=== PATIENT | female | born 1990 | race Caucasian/White ===

== ENCOUNTER 2020-04-28 00:55 | Emergency (ER) | payer MEDICAID, OTHER ==
[~2020-04-28] VITALS: Ht 160 cm; Wt 77.1 kg
--- NOTE | 2020-04-28 01:25 | ED Abdominal Pain ---
General Chief Complaint: Fever-Adult/Adol Stated Complaint: POSS FEVER,NAUSEA,ABD PAIN Source of Information: Patient Exam Limitations: No Limitations History of Present Illness Date Seen by Provider: Apr 28, 2020 Time Seen by Provider: 01:05 Initial Comments Patient presents ER by private conveyance with chief complaint last couple days some progressively worse fever, low pelvic pain nausea. She is not having any cough shortness of air. She claims her fever was a high of 105 1 hour ago but took some Tylenol and nursing reports temperature 36 Celsius when she arrives. Normal bowel movement yesterday. No known sick contacts. She went to [facility] yesterday and had 4 L of fluid given as well as blood in urine which she was told was okay. She says they did a negative Covid swab. Patient says she would like to have STD testing since she is having some pain in her right lower quadrant and some increasing discharge. She is denying any dysuria. She says her partner who she has been monogamous with has recently been moving out. She has had a history of chlamydia in the past and was adequately treated. Allergies and Home Medications Allergies Coded Allergies: Penicillins (Verified Allergy, Unknown, 04/28/20) amoxicillin (Verified Allergy, Unknown, 04/28/20) ibuprofen (Verified Allergy, Unknown, 04/28/20) latex (Verified Allergy, Unknown, 04/28/20) nitrofurantoin (Verified Allergy, Unknown, 04/28/20) Patient Home Medication List Home Medication List Reviewed: Yes Review of Systems Review of Systems Constitutional: chills, fever, malaise EENTM: No Blurred Vision Respiratory: Denies Cough, Denies Shortness of Air Past Jodsand-Ntouyd-Wbonjy Hx Patient Social History Recent Foreign Travel: No Contact w/Someone Who Travel: No Physical Exam Vital Signs Vital Signs - First Documented 04/28/20 01:18 Temp 36.2 Pulse 111 Resp 18 B/P (MAP) 122/94 (103) Pulse Ox 96 O2 Delivery Room Air Capillary Refill : Height/Weight/BMI Height: '" Weight: lbs. oz. kg; BMI Method: General Appearance: WD/WN, mild distress HEENT: PERRL/EOMI, pharynx normal Neck: full range of motion, supple, normal inspection Respiratory: lungs clear, normal breath sounds, no respiratory distress, no accessory muscle use Cardiovascular: normal peripheral pulses, regular rate, rhythm, no edema, tachycardia Peripheral Pulses: 2+ Radial Pulses (R), 2+ Radial Pulses (L) Gastrointestinal: normal bowel sounds, non tender, soft, no organomegaly, other (Negative for mesenteric signs) Genital/Rectal: other (Normal external genital exam without lesions. There is a thin white nonmalodorous discharge without cervical tenderness on examination.) Extremities: normal range of motion, non-tender, normal inspection Neurologic/Psychiatric: alert, normal mood/affect, oriented x 3 Skin: normal color, warm/dry Progress/Results/Core Measures Results/Orders Lab Results Laboratory Tests Test 04/28/20 01:25 Range/Units White Blood Count 4.7 4.3-11.0 10^3/uL Red Blood Count 4.31 3.80-5.11 10^6/uL Hemoglobin 11.9 11.5-16.0 g/dL Hematocrit 38 35-52 % Mean Corpuscular Volume 87 80-99 fL Mean Corpuscular Hemoglobin 28 25-34 pg Mean Corpuscular Hemoglobin Concent 32 32-36 g/dL Red Cell Distribution Width 15.0 H 10.0-14.5 % Platelet Count 157 130-400 10^3/uL Mean Platelet Volume 11.1 9.0-12.2 fL Immature Granulocyte % (Auto) 1 % Neutrophils (%) (Auto) 53 42-75 % Lymphocytes (%) (Auto) 38 12-44 % Monocytes (%) (Auto) 6 0-12 % Eosinophils (%) (Auto) 2 0-10 % Basophils (%) (Auto) 0 0-10 % Neutrophils # (Auto) 2.5 1.8-7.8 10^3/uL Lymphocytes # (Auto) 1.8 1.0-4.0 10^3/uL Monocytes # (Auto) 0.3 0.0-1.0 10^3/uL Eosinophils # (Auto) 0.1 0.0-0.3 10^3/uL Basophils # (Auto) 0.0 0.0-0.1 10^3/uL Immature Granulocyte # (Auto) 0.0 0.0-0.1 10^3/uL Urine Color YELLOW Urine Clarity CLEAR Urine pH 7.0 5-9 Urine Specific [place] <=1.005 1.016-1.022 Urine Protein NEGATIVE NEGATIVE Urine Glucose (UA) NEGATIVE NEGATIVE Urine Ketones NEGATIVE NEGATIVE Urine Nitrite NEGATIVE NEGATIVE Urine Bilirubin NEGATIVE NEGATIVE Urine Urobilinogen 1.0 < = 1.0 MG/DL Urine Leukocyte Esterase NEGATIVE NEGATIVE Urine RBC (Auto) NEGATIVE NEGATIVE Urine RBC NONE /HPF Urine WBC 0-2 /HPF Urine Squamous Epithelial Cells 2-5 /HPF Urine Crystals NONE /LPF Urine Bacteria TRACE /HPF Urine Casts NONE /LPF Urine Mucus NEGATIVE /LPF Urine Culture Indicated NO Sodium Level 137 135-145 MMOL/L Potassium Level 3.7 3.6-5.0 MMOL/L Chloride Level 103 98-107 MMOL/L Carbon Dioxide Level 22 21-32 MMOL/L Anion Gap 12 5-14 MMOL/L Blood Urea Nitrogen 6 L 7-18 MG/DL Creatinine 0.89 0.60-1.30 MG/DL Estimat Glomerular Filtration Rate > 60 BUN/Creatinine Ratio 7 Glucose Level 119 H 70-105 MG/DL Calcium Level 8.9 8.5-10.1 MG/DL Corrected Calcium 8.6 8.5-10.1 MG/DL Total Bilirubin 0.8 0.1-1.0 MG/DL Aspartate Amino Transf (AST/SGOT) 33 5-34 U/L Alanine Aminotransferase (ALT/SGPT) 42 0-55 U/L Alkaline Phosphatase 116 40-136 U/L C-Reactive Protein High Sensitivity 5.74 H 0.00-0.50 MG/DL Total Protein 7.4 6.4-8.2 GM/DL Albumin 4.4 3.2-4.5 GM/DL Lipase 21 8-78 U/L Micro Results Microbiology 04/28/20 Influenza Types A,B Antigen (DWAYNE) - Final, Complete My Orders Orders - ROSALIA POP Ua Culture If Indicated (04/28/20 01:17) Urine Bedside (04/28/20 01:17) Ed Iv/Invasive Line Start (04/28/20 01:17) Cbc With Automated Diff (04/28/20 01:17) Comprehensive Metabolic Panel (04/28/20 01:17) Hs C Reactive Protein (04/28/20 01:17) Lipase (04/28/20 01:17) Famotidine Injection (Pepcid Injection) (04/28/20 01:30) Ondansetron Injection (Zofran Injectio (04/28/20 01:30) Wet Prep (04/28/20 01:17) Neisseria Gonorrhea Swab (04/28/20 01:17) Chlamydia Trachomatis Swab (04/28/20 01:17) Syphilis Antibody Screen (04/28/20 01:17) Influenza A And B Antigens (04/28/20 01:29) Ceftriaxone For Iv Use (Rocephin For I (04/28/20 02:15) Azithromycin Tablet (Zithromax Tablet) (04/28/20 02:15) Medications Given in ED Current Medications Medications Dose Ordered Sig/Godwin Route Start Time Stop Time Status Last Admin Dose Admin Azithromycin 1,000 mg ONCE ONCE PO 04/28/20 02:15 04/28/20 02:16 DC 04/28/20 02:20 1,000 MG Ceftriaxone Sodium 1000 mg/ Sterile Water 10 ml @ 200 mls/hr ONCE ONCE IV 04/28/20 02:15 04/28/20 02:17 DC 04/28/20 02:20 200 MLS/HR Vital Signs/I&O 04/28/20 01:18 Temp 36.2 Pulse 111 Resp 18 B/P (MAP) 122/94 (103) Pulse Ox 96 O2 Delivery Room Air Progress Progress Note #1: Time: :26 Progress Note Plan to get a wet prep, syphilis, chlamydia and gonorrhea swabs. Plan to check some basic labs per her request. Repeat urinalysis. She has mild tachycardia 105-110 and otherwise unremarkable vital signs and a nonsurgical, nonacute abdomen. Zofran for nausea. She says she got 4 L of fluid last night at [facility] so we will hold off giving any IV fluids tonight. Progress Note #2: Time: 02:12 Progress Note Plan to give her Rocephin and azithromycin. Wet prep is sent to the lab. We discussed she could go to the health department for HIV testing but we will get testing for gonorrhea, chlamydia and syphilis. She is not having significant pain and has declined the Pepcid and Zofran stating she is no longer having nausea. Departure Impression Primary Impression: PID (pelvic inflammatory disease) Disposition: 01 HOME, SELF-CARE Condition: Stable Departure-Patient Inst. Decision time for Depature: 02:26 Referrals: NO,LOCAL PHYSICIAN (PCP/Family) Primary Care Physician Patient Instructions: LOCAL PHYSICIAN LIST, Pelvic Inflammatory Disease (DC) Add. Discharge Instructions: Your low pelvis pain and fever could be related to pelvic inflammatory disease. We have test sent out that will result out in the next 3 to 4 days. If they are positive they will call you with the results and make sure you have been appropriately treated. The antibiotics you received today should be adequate treatment for now. Tylenol as necessary for your symptoms. Drink plenty of fluids. If you would like further testing I would encourage you to follow-up with your primary care doctor, die repair or the [facility]. If you begin to have worsening intractable pain, intractable nausea or other worrisome symptoms then please return to the nearest ER. Doxycycline 1 capsule twice a day for the next week. All discharge instructions reviewed with patient and/or family. Voiced understanding. Scripts Doxycycline Hyclate (Doxycycline Hyclate) 100 Mg Tablet 100 MG PO BID for 7 Days, #14 TAB 0 Refills Prov: ROSALIA POP 04/28/20 ROSALIA POP Apr 28, 2020 01:25
[2020-04-28] MEDS ORDERED: ONDANSETRON 4 MG/2 ML (SDV) Z0FRAN IVP ONE (01:30)
[2020-04-28] MEDS ORDERED: FAMOTIDINE 20MG/2ML IV (PEPCID) IVP ONE (01:30)
[2020-04-28 01:32] LABS: BILIRUBIN,URINE NEGATIVE (NEGATIVE); CLARITY,URINE CLEAR; COLOR,URINE YELLOW; GLUCOSE, URINE (UA) NEGATIVE (NEGATIVE); KETONES,URINE NEGATIVE (NEGATIVE); LEUKOCYTE ESTERASE ,URINE NEGATIVE (NEGATIVE); NITRITE,URINE NEGATIVE (NEGATIVE); PROTEIN,URINE NEGATIVE (NEGATIVE)
[2020-04-28 01:39] LABS: BACTERIA,URINE TRACE /HPF; BASOPHILS % (AUTO) 0 % (0-10); EOSINOPHILS # (AUTO) 0.1 10^3/uL (0.0-0.3); EOSINOPHILS % (AUTO) 2 % (0-10); HEMATOCRIT 38 % (35-52); HEMOGLOBIN 11.9 g/dL (11.5-16.0); LYMPHOCYTES # (AUTO) 1.8 10^3/uL (1.0-4.0); LYMPHOCYTES % (AUTO) 38 % (12-44); MEAN CORPUSCULAR HEMOGLOBIN 28 pg (25-34); MEAN CORPUSCULAR HGB CONC 32 g/dL (32-36); MEAN CORPUSCULAR VOLUME 87 fL (80-99); MEAN PLATELET VOLUME 11.1 fL (9.0-12.2); MONOCYTES # (AUTO) 0.3 10^3/uL (0.0-1.0); MONOCYTES % (AUTO) 6 % (0-12); NEUTROPHILS # (AUTO) 2.5 10^3/uL (1.8-7.8); NEUTROPHILS % (AUTO) 53 % (42-75); PLATELET COUNT 157 10^3/uL (130-400); WBC,URINE 0-2 /HPF; WHITE BLOOD COUNT 4.7 10^3/uL (4.3-11.0)
[2020-04-28 01:42] LABS: ALBUMIN 4.4 GM/DL (3.2-4.5); CHLORIDE 103 MMOL/L (98-107); POTASSIUM 3.7 MMOL/L (3.6-5.0); SODIUM 137 MMOL/L (135-145)
[2020-04-28 01:44] LABS: CALCIUM 8.9 MG/DL (8.5-10.1)
[2020-04-28 01:45] LABS: GLUCOSE 119 MG/DL (70-105); TOTAL PROTEIN 7.4 GM/DL (6.4-8.2)
[2020-04-28 01:46] LABS: BILIRUBIN,TOTAL 0.8 MG/DL (0.1-1.0); CARBON DIOXIDE 22 MMOL/L (21-32)
[2020-04-28 01:48] LABS: ALKALINE PHOSPHATASE 116 U/L (40-136)
[2020-04-28 01:49] LABS: CREATININE SERUM 0.89 MG/DL (0.60-1.30); GFR ESTIMATED > 60
[2020-04-28 01:50] LABS: BUN/CREATININE RATIO 7
[2020-04-28 01:51] LABS: ALANINE AMINOTRANSFERASE 42 U/L (0-55)
[2020-04-28 01:52] LABS: LIPASE 21 U/L (8-78)
[2020-04-28] MEDS ORDERED: AZITHROMYCIN 250 MG TAB (ZITHROMAX) PO ONE (02:15)
[2020-04-28] MEDS ORDERED: cefTRIAXone FOR IV USE 1,000 MG in WATER (STERILE) FOR INJECTION 10 ML IV ONE (02:15)
[2020-04-28] MEDS ORDERED: DOXY100T2 PO (02:30)
[2020-04-28 02:31] VITALS: BP 111/83
== END 2020-04-28 02:36 | disposition home or self-care (01) ==
LOC: ER 01:02
DX: N73.9 Female pelvic inflammatory disease, unspecified (principal); Z88.0 Allergy status to penicillin; Z88.1 Allergy status to other antibiotic agents; Z88.6 Allergy status to analgesic agent; Z91.040 Latex allergy status; Z88.8 Allergy status to other drugs, medicaments and biological substances
CPT/HCPCS: 36415; 80053; 81000; 83690; 84703; 85025; 86141; 86780; 87210; 87491; 87591; 87804

== ENCOUNTER 2021-09-04 18:12 | Emergency (ER) | payer OTHER, MEDICAID ==
[~2021-09-04] VITALS: Ht 160 cm; Wt 81.6 kg
[~2021-09-04 18:12] MED LIST: DOXY100T2 PO
[2021-09-04 19:40] LABS: BILIRUBIN,URINE NEGATIVE (NEGATIVE); CLARITY,URINE CLEAR; COLOR,URINE YELLOW; GLUCOSE, URINE (UA) NEGATIVE (NEGATIVE); KETONES,URINE NEGATIVE (NEGATIVE); LEUKOCYTE ESTERASE ,URINE NEGATIVE (NEGATIVE); NITRITE,URINE NEGATIVE (NEGATIVE); PROTEIN,URINE NEGATIVE (NEGATIVE)
[2021-09-04 19:48] LABS: AMORPHOUS SEDIMENT,UR LARGE AMOR PHOSPHATE /LPF; BACTERIA,URINE LARGE /HPF; WBC,URINE 0-2 /HPF
[2021-09-04] MEDS ORDERED: AZITHROMYCIN 250 MG TAB (ZITHROMAX) PO STA (20:46)
[2021-09-04] MEDS ORDERED: cefTRIAXone 1 GM PRE-MIX 50 ML IV STA (20:46)
--- NOTE | 2021-09-04 20:48 | ED GU-Female ---
General Chief Complaint: - Reproductive Stated Complaint: VAG DISCHARGE Nursing Triage Note: PT PRESENTS TO ED WITH COMPLAITNS OF SPOTTING WITH IUD THAT WAS PLACED 3 WEEKS AGO. PT REPORTS HEAVY BLEEDING WITH BLOOD CLOTS STARTING TWO DAYS AGO. Source: patient Exam Limitations: no limitations History of Present Illness Date Seen by Provider: September 04, 2021 Time Seen by Provider: 18:24 Initial Comments This 30-year-old young lady presents to the emergency room with complaints of abnormal vaginal bleeding. She has had some cramping associated with that and feels faint when she has the cramping. She had a copper T IUD placed about 3 weeks ago. She reports a negative test prior to its placement. She had a inserted at the [facility]. She took a test at home that was on clear. She has had a brownish discharge with a bit of a foul smell to it. She denies any fevers. She has had no dysuria or urinary freque ncy. She has been passing some small blood clots. She reports having a new partner about 5 weeks ago. She does not use any barrier protection. Her primary care is provided at [facility]. Allergies and Home Medications Allergies Coded Allergies: Penicillins (Verified Allergy, Unknown, 04/28/20) amoxicillin (Verified Allergy, Unknown, 04/28/20) ibuprofen (Verified Allergy, Unknown, 04/28/20) latex (Verified Allergy, Unknown, 04/28/20) nitrofurantoin (Verified Allergy, Unknown, 04/28/20) Patient Home Medication List Home Medication List Reviewed: Yes Doxycycline Hyclate (Doxycycline Hyclate) 100 Mg Tablet, 100 MG PO BID Prescribed by: ROSALIA POP on 04/28/20 0230 Review of Systems Review of Systems Constitutional: no symptoms reported EENTM: no symptoms reported Respiratory: no symptoms reported Cardiovascular: see HPI Gastrointestinal: no symptoms reported Genitourinary: see HPI : No Musculoskeletal: no symptoms reported Skin: no symptoms reported Psychiatric/Neurological: No Symptoms Reported Endocrine: No Symptoms Reported Hematologic/Lymphatic: No Symptoms Reported Past Dhhfjho-Qwfmor-Buheww Hx Patient Social History Tobacco Use?: No Substance use?: No Alcohol Use?: No Pt feels they are or have been: No Seasonal Allergies Seasonal Allergies: No Past Medical History Surgery/Hospitalization HX: pmh: anxiety, bipolar Surgeries: No Respiratory: No Cardiac: No Neurological: No : No Last Menstrual Period: September 04, 2021 Sexually Transmitted Disease: Yes (Chlamydia and gonorrhea) Genitourinary: No Gastrointestinal: No Musculoskeletal: No Endocrine: No HEENT: No Cancer: No Psychosocial: Yes Anxiety, Bipolar Integumentary: No Blood Disorders: No Physical Exam Vital Signs Vital Signs - First Documented 09/04/21 09/04/21 19:20 21:20 Temp 37.3 Pulse 107 Resp 18 B/P (MAP) 126/92 (103) Pulse Ox 98 O2 Delivery Room Air Capillary Refill : Less Than 3 Seconds Height, Weight, BMI Height: '" Weight: lbs. oz. kg; 31.00 BMI Method: General Appearance: WD/WN, no apparent distress HEENT: normal ENT inspection Neck: normal inspection Cardiovascular: regular rate, rhythm, no edema Respiratory: normal breath sounds, no respiratory distress Gastrointestinal: normal bowel sounds, non tender, soft Pelvic: normal external exam, normal adnexa, no cerv. motion tender, other (Scant blood in the vaginal vault. IUD strings in place. Dusky edema of the cervix. No discharge or odor) Extremities: normal inspection Neurologic/Psychiatric: alert, normal mood/affect, oriented x 3 Skin: normal color, warm/dry Progress/Results/Core Measures Suspected Sepsis SIRS Temperature: Pulse: 107 Respiratory Rate: 18 Blood Pressure 126 /92 Mean: 103 Results/Orders Lab Results Laboratory Tests Test 09/04/21 19:11 09/04/21 19:25 Range/Units Urine Color YELLOW Urine Clarity CLEAR Urine pH 8.0 5-9 Urine Specific [place] 1.015 L 1.016-1.022 Urine Protein NEGATIVE NEGATIVE Urine Glucose (UA) NEGATIVE NEGATIVE Urine Ketones NEGATIVE NEGATIVE Urine Nitrite NEGATIVE NEGATIVE Urine Bilirubin NEGATIVE NEGATIVE Urine Urobilinogen 2.0 < = 1.0 MG/DL Urine Leukocyte Esterase NEGATIVE NEGATIVE Urine RBC (Auto) 1+ H NEGATIVE Urine RBC NONE /HPF Urine WBC 0-2 /HPF Urine Squamous Epithelial Cells NONE /HPF Urine Renal Epithelial Cells NONE /HPF Urine Crystals PRESENT H /LPF Urine Amorphous Sediment LARGE DICK PHOSPHATE H /LPF Urine Bacteria LARGE H /HPF Urine Casts NONE /LPF Urine Mucus NEGATIVE /LPF Urine Culture Indicated YES Urine Test NEGATIVE NEGATIVE Micro Results Microbiology 09/04/21 Genital Culture, Resulted Pending 09/04/21 Wet Prep - Final, Resulted 09/04/21 Urine Culture - Preliminary, Resulted Culture In Progress My Orders Orders - DARIUS SCHMIDT MD Hcg,Qualitative Urine (09/04/21 18:24) Ua Culture If Indicated (09/04/21 18:24) Wet Prep (09/04/21 18:24) Neisseria Gonorrhea Swab (09/04/21 18:24) Genital Culture (09/04/21 18:24) Chlamydia Trachomatis Swab (09/04/21 18:24) Urine Culture (09/04/21 19:25) Ceftriaxone 1 Gm Pre-Mix (Rocephin 1 Gm (09/04/21 20:46) Azithromycin Tablet (Zithromax Tablet) (09/04/21 20:46) Ceftriaxone (Rocephin) (09/04/21 21:00) Lidocaine 1% Inj 20 Ml (Xylocaine 1% Inj (09/04/21 21:00) Vital Signs/I&O 09/05/21 00:00 Intake Total 50 ml Balance 50 ml Capillary Refill : Less Than 3 Seconds Blood Pressure Mean: 103 Progress Note : Progress Note WBCs noted on the preliminary micro. Due to symptom development after having intercourse with a new partner, she is being presumptively treated for possible infections. A gram of Rocephin was administered by IV route along with a gram of azithromycin orally. See discharge instructions for further discussion. Departure Impression Primary Impression: Complication of intrauterine device (IUD) Qualified Codes: T83.9XXA - Unspecified complication of genitourinary prosthetic device, implant and graft, initial encounter Additional Impression: Abnormal vaginal bleeding Disposition: 01 HOME, SELF-CARE Condition: Stable Departure-Patient Inst. Referrals: NO,LOCAL PHYSICIAN (PCP/Family) Primary Care Physician Patient Instructions: Intrauterine Devices (IUD), Sexually Transmitted Diseases ED Add. Discharge Instructions: Follow-up with your primary care provider later this week to review culture results. If your treatment today does not resolve the symptoms, consider IUD removal and alternative control method in consultation with your primary care provider or women's health provider. Remain abstinent from sexual activity until the results of your STI screening are known. These results should be available within 4 days. Please call the clinic tomorrow to arrange a follow-up appointment. Return to care if you have worsening symptoms despite following these instructions. All discharge instructions reviewed with patient and/or family. Voiced understanding. Copy Copies To 1: CHIDI BERGMAN JOSHUA T MD September 04, 2021 20:48
[2021-09-04] MEDS ORDERED: cefTRIAXone 1,000 MG VIAL IM ONE (21:00)
[2021-09-04] MEDS ORDERED: LIDOCAINE 1% INJ 20 ML VIAL INJ ONE (21:00)
[2021-09-04 21:20] VITALS: BP 122/90
== END 2021-09-04 21:20 | disposition home or self-care (01) ==
LOC: EDUNIT# 18:12 → ER 18:15
DX: T83.83XA Hemorrhage due to genitourinary prosthetic devices, implants and grafts, initial encounter (principal); Z32.02 Encounter for pregnancy test, result negative
CPT/HCPCS: 36415; 81000; 84703; 87070; 87077; 87088; 87205; 87210; 87491; 87591; 99284

== ENCOUNTER 2021-09-24 14:07 | Emergency (ER) | payer OTHER, MEDICAID ==
[~2021-09-24] VITALS: Ht 160 cm; Wt 79.9 kg
--- NOTE | 2021-09-24 14:20 | ED GU-Female ---
General Chief Complaint: - Reproductive Stated Complaint: DISCHARGE/NAUSEA Source: patient Exam Limitations: no limitations (EHSAN JIMENEZ) History of Present Illness Date Seen by Provider: September 24, 2021 Time Seen by Provider: 14:17 Initial Comments Patient is a 30-year-old female presents ED with vaginal discharge and lower back discomfort with nausea. Symptoms started a few days ago. She states she was seen here on the second diagnosed with sexual transmitted affection was treated with Rocephin and azithromycin. She had improvement for a few weeks until the symptoms return. Has not been sexually active since being treated. Vaginal discharge white and thick. Denies of any odor. Denies abdominal pain, fever, vomiting, diarrhea. Currently has a copper IUD. Not concern for . She would like to be treated prophylactically. Patient denies dysuria, frequent urination, vaginal bleeding, chest pain, joint pain, sore throat, rash (EHSAN JIMENEZ) Allergies and Home Medications Allergies Coded Allergies: ibuprofen (Verified Allergy, Unknown, Hypotension, 09/05/21) latex (Verified Allergy, Unknown, 04/28/20) Penicillins (Verified Adverse Reaction, Unknown, Vomiting, 09/05/21) amoxicillin (Verified Adverse Reaction, Unknown, Vomiting, 09/05/21) nitrofurantoin (Verified Adverse Reaction, Unknown, Vomiting, 09/05/21) Vomiting and dysphoria Patient Home Medication List Home Medication List Reviewed: Yes (EHSAN JIMENEZ) Doxycycline Hyclate (Doxycycline Hyclate) 100 Mg Tablet, 100 MG PO BID Prescribed by: ROSALIA POP on 04/28/20 0230 Doxycycline Monohydrate (Doxycycline Monohydrate) 100 Mg Capsule, 100 MG PO BID Prescribed by: LUIS SHARPE on 09/24/21 1533 Metronidazole (Metronidazole) 500 Mg Tablet, 500 MG PO BID Prescribed by: LUIS SHARPE on 09/24/21 1533 Review of Systems Review of Systems Constitutional: No chills, No diaphoresis EENTM: No double vision Gastrointestinal: No abdominal pain; nausea; No vomiting Genitourinary: denies burning, denies discharge Musculoskeletal: No back pain, No joint pain Skin: No change in color, No change in hair/nails (EHSAN JIMENEZ) All Other Systemes Reviewed Negative Unless Noted: Yes (EHSAN JIMENEZ) Past Yzahyiz-Wloebw-Wimreh Hx Seasonal Allergies Seasonal Allergies: No (EHSAN JIMENEZ) Past Medical History Surgery/Hospitalization HX: pmh: anxiety, bipolar Surgeries: No Respiratory: No Cardiac: No Neurological: No Sexually Transmitted Disease: Yes (Chlamydia and gonorrhea) Genitourinary: No Gastrointestinal: No Musculoskeletal: No Endocrine: No HEENT: No Cancer: No Psychosocial: Yes Anxiety, Bipolar Integumentary: No Blood Disorders: No (EHSAN JIMENEZ) Physical Exam Vital Signs Vital Signs - First Documented 09/24/21 14:14 Temp 37.0 Pulse 89 Resp 16 B/P (MAP) 137/96 (110) Pulse Ox 99 O2 Delivery Room Air (DARIUS SCHMIDT MD) Vital Signs Capillary Refill : (EHSAN JIMENEZ) Height, Weight, BMI Height: '" Weight: lbs. oz. kg; 31.00 BMI Method: General Appearance: WD/WN, no apparent distress HEENT: PERRL/EOMI, normal ENT inspection, TMs normal, pharynx normal Neck: non-tender, full range of motion, supple, normal inspection Cardiovascular: regular rate, rhythm, no edema, no gallop, no JVD Respiratory: chest non-tender, lungs clear, normal breath sounds, no respiratory distress, no accessory muscle use Gastrointestinal: normal bowel sounds, non tender, soft, no organomegaly Extremities: normal range of motion, non-tender, normal inspection, no pedal edema Neurologic/Psychiatric: distribution center assistant II-XII nml as tested, no motor/sensory deficits, a lert, normal mood/affect Skin: normal color, warm/dry (EHSAN JIMENEZ) Progress/Results/Core Measures Suspected Sepsis SIRS Temperature: Pulse: Respiratory Rate: Blood Pressure / Mean: (EHSAN JIMENEZ) Results/Orders Lab Results Laboratory Tests Test 09/24/21 14:21 Range/Units Urine Color YELLOW Urine Clarity CLEAR Urine pH 5.5 5-9 Urine Specific [place] >=1.030 1.016-1.022 Urine Protein NEGATIVE NEGATIVE Urine Glucose (UA) NEGATIVE NEGATIVE Urine Ketones NEGATIVE NEGATIVE Urine Nitrite NEGATIVE NEGATIVE Urine Bilirubin NEGATIVE NEGATIVE Urine Urobilinogen 1.0 < = 1.0 MG/DL Urine Leukocyte Esterase NEGATIVE NEGATIVE Urine RBC (Auto) NEGATIVE NEGATIVE Urine RBC NONE /HPF Urine WBC 0-2 /HPF Urine Squamous Epithelial Cells 0-2 /HPF Urine Crystals NONE /LPF Urine Bacteria NEGATIVE /HPF Urine Casts NONE /LPF Urine Mucus NEGATIVE /LPF Urine Culture Indicated NO Urine Test NEGATIVE NEGATIVE (DARIUS SCHMIDT MD) Micro Results Microbiology 09/24/21 Wet Prep - Final, Complete (DARIUS SCHMIDT MD) Medications Given in ED Current Medications Medications Dose Ordered Sig/Godwin Route Start Time Stop Time Status Last Admin Dose Admin Ceftriaxone Sodium 500 mg ONCE ONCE IM 09/24/21 14:30 09/24/21 14:31 DC 09/24/21 14:35 500 MG Lidocaine HCl 1 ml ONCE ONCE INJ 09/24/21 14:30 09/24/21 14:31 DC 09/24/21 14:35 1 ML Ondansetron HCl 4 mg ONCE ONCE PO 09/24/21 15:00 09/24/21 15:01 DC 09/24/21 14:55 4 MG (DARIUS SCHMIDT MD) Vital Signs/I&O 09/24/21 09/24/21 14:14 15:53 Temp 37.0 Pulse 89 82 Resp 16 16 B/P (MAP) 137/96 (110) 115/103 Pulse Ox 99 97 O2 Delivery Room Air Room Air (DARIUS SCHMIDT MD) Vital Signs/I&O Capillary Refill : (EHSAN JIMENEZ) Departure Communication (PCP) Patient without any urinary symptoms. Urinalysis negative for infection or . Wet mount did noted white blood cells without evidence of trichomoniasis. Chlamydia and gonorrhea pending. Patient Was given IM Rocephin. She is concern for sexual transmitted infection. Her previous culture was negative on 09 04 21. She is concerned that she still has a sexual transmitted infection and would like to be treated. Will discharge with doxycycline to cover chlamydia but unlikely as she stated she has not had any sexual intercourse since. 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 Discussed with patient IUDs can lead to pelvic inflammatory diseases. Due to her current symptoms with minimal improvement after first round of antibiotics we will add Flagyl for any other infectious etiologies that may be associated. She does have some nausea and was given Zofran. Vital signs stable. Does not appear toxic. (EHSAN JIMENEZ) Impression Primary Impression: Vaginal discharge Disposition: 01 HOME, SELF-CARE Condition: Stable Departure-Patient Inst. Decision time for Depature: 15:31 (EHSAN JIMENEZ) Referrals: [facility]/BLAISE SCHULTE MD NO,LOCAL PHYSICIAN (PCP) Primary Care Physician Patient Instructions: Vaginal Discharge Scripts Metronidazole (Metronidazole) 500 Mg Tablet 500 MG PO BID for 7 Days, #14 TAB Prov: EHSAN JIMENEZ 09/24/21 Doxycycline Monohydrate (Doxycycline Monohydrate) 100 Mg Capsule 100 MG PO BID for 7 Days, #14 CAP Prov: EHSAN JIMENEZ 09/24/21 ATTENDING PHYSICIAN NOTE: I was physically present as attending physician in the emergency department during the care of this patient, but I was not directly involved in the decision making or delivery of care for this patient. (DARIUS SCHMIDT MD) EHSAN JIMENEZ September 24, 2021 14:20 DARIUS SCHMIDT MD September 24, 2021 20:20
[2021-09-24] MEDS ORDERED: LIDOCAINE 1% INJ 20 ML VIAL INJ ONE (14:30)
[2021-09-24] MEDS ORDERED: cefTRIAXone 500 MG/5 ML ML IM ONE (14:30)
[2021-09-24 14:34] LABS: BILIRUBIN,URINE NEGATIVE (NEGATIVE); CLARITY,URINE CLEAR; COLOR,URINE YELLOW; GLUCOSE, URINE (UA) NEGATIVE (NEGATIVE); KETONES,URINE NEGATIVE (NEGATIVE); LEUKOCYTE ESTERASE ,URINE NEGATIVE (NEGATIVE); NITRITE,URINE NEGATIVE (NEGATIVE); PH,URINE 5.5 (5-9); PROTEIN,URINE NEGATIVE (NEGATIVE)
[2021-09-24 14:57] LABS: BACTERIA,URINE NEGATIVE /HPF; SQUAMOUS EPITHELIAL CELL,UR 0-2 /HPF; WBC,URINE 0-2 /HPF
[2021-09-24] MEDS ORDERED: ONDANSETRON 4 MG (ZOFRAN) ORAL DISSOLVE TAB PO ONE (15:00)
[2021-09-24] MEDS ORDERED: METR-145 PO (15:33)
[2021-09-24] MEDS ORDERED: DOXY-311 PO (15:33)
[2021-09-24 15:53] VITALS: BP 115/103
== END 2021-09-24 15:53 | disposition home or self-care (01) ==
LOC: EDUNIT# 14:07 → ER 14:08
DX: N89.8 Other specified noninflammatory disorders of vagina (principal); Z97.5 Presence of (intrauterine) contraceptive device; Z32.02 Encounter for pregnancy test, result negative
CPT/HCPCS: 36415; 81000; 84703; 87210; 87491; 87591; 99284

== ENCOUNTER 2021-12-03 15:19 | Emergency (ER) | payer OTHER, MEDICAID ==
[~2021-12-03] VITALS: Ht 165 cm; Wt 78.0 kg
[~2021-12-03 15:19] MED LIST changes: +DOXY-311 PO; +METR-145 PO
[2021-12-03 15:50] LABS: BASOPHILS % (AUTO) 0 % (0-10); BILIRUBIN,URINE NEGATIVE (NEGATIVE); CLARITY,URINE CLEAR; COLOR,URINE YELLOW; EOSINOPHILS # (AUTO) 0.1 10^3/uL (0.0-0.3); EOSINOPHILS % (AUTO) 1 % (0-10); GLUCOSE, URINE (UA) 3+ (NEGATIVE); HEMATOCRIT 39 % (35-52); HEMOGLOBIN 13.5 g/dL (11.5-16.0); KETONES,URINE NEGATIVE (NEGATIVE); LEUKOCYTE ESTERASE ,URINE NEGATIVE (NEGATIVE); LYMPHOCYTES # (AUTO) 2.5 10^3/uL (1.0-4.0); LYMPHOCYTES % (AUTO) 34 % (12-44); MEAN CORPUSCULAR HEMOGLOBIN 29 pg (25-34); MEAN CORPUSCULAR HGB CONC 34 g/dL (32-36); MEAN CORPUSCULAR VOLUME 86 fL (80-99); MEAN PLATELET VOLUME 10.4 fL (9.0-12.2); MONOCYTES # (AUTO) 0.4 10^3/uL (0.0-1.0); MONOCYTES % (AUTO) 6 % (0-12); NEUTROPHILS # (AUTO) 4.3 10^3/uL (1.8-7.8); NEUTROPHILS % (AUTO) 59 % (42-75); NITRITE,URINE NEGATIVE (NEGATIVE); PLATELET COUNT 236 10^3/uL (130-400); PROTEIN,URINE NEGATIVE (NEGATIVE); WHITE BLOOD COUNT 7.4 10^3/uL (4.3-11.0)
[2021-12-03 16:00] LABS: ALBUMIN 4.7 GM/DL (3.2-4.5); CHLORIDE 100 MMOL/L (98-107); POTASSIUM 3.7 MMOL/L (3.6-5.0); SODIUM 135 MMOL/L (135-145)
[2021-12-03 16:01] LABS: BACTERIA,URINE NEGATIVE /HPF; CALCIUM 9.3 MG/DL (8.5-10.1); RBC,URINE 0-2 /HPF; WBC,URINE RARE /HPF
[2021-12-03 16:02] LABS: GLUCOSE 309 MG/DL (70-105); TOTAL PROTEIN 7.7 GM/DL (6.4-8.2)
[2021-12-03 16:03] LABS: CARBON DIOXIDE 22 MMOL/L (21-32)
[2021-12-03 16:04] LABS: BILIRUBIN,TOTAL 0.7 MG/DL (0.1-1.0)
[2021-12-03 16:06] LABS: ALKALINE PHOSPHATASE 136 U/L (40-136); CREATININE SERUM 0.92 MG/DL (0.60-1.30); GFR ESTIMATED 86
[2021-12-03 16:07] LABS: BUN/CREATININE RATIO 9
[2021-12-03 16:09] LABS: ALANINE AMINOTRANSFERASE 94 U/L (0-55)
[2021-12-03] MEDS ORDERED: ONDA4TAB11 SL (17:09)
--- NOTE | 2021-12-03 17:10 | ED Abdominal Pain ---
General Chief Complaint: Abdominal/GI Problems Stated Complaint: ABNORMAL VAG BLEEDING,R SIDE ABD/BACK PAIN Nursing Triage Note: PT AMB TO ED BY POV WITH C/O R SIDED ABD, FLANK, BACK PAIN, VAGINAL BLEEDING X 2 MONTHS, ROSAS, AND NAUSEA. PT REPORTS SHE HAD IUD PLACED 3 MO AGO, BLEEDING ON AND OFF SINCE. DENIES FEVER, VOMITING, DIARRHEA, URINARY SX. PT REPORTS SHE HAS HAD 2 POSITIVE AND 2 NEGATIVE HOME TESTS. Source of Information: Patient Exam Limitations: No Limitations History of Present Illness Date Seen by Provider: Dec 03, 2021 Time Seen by Provider: 15:42 Initial Comments This 31-year-old young lady presents to the emergency room with complaints of right mid abdominal pain that radiates to her back along the costal margin. She is also complained of intermittent vaginal bleeding over the past 2 months after having a copper IUD placed 3 or 4 months ago. [facility]. Her pain has been present for 3 days. She has had some pelvic cramping, but pain is otherwise been throughout the right abdomen. Eating does seem to worsen the pain and she has notable nausea with eating. She does have a history of abnormal uterine bleeding and questionable history of prior PID. She is not presently sexually active and has not been for about 2 months. She denies any vaginal or urinary symptoms. She did not experience any pain with prior intercourse. Allergies and Home Medications Allergies Coded Allergies: ibuprofen (Verified Allergy, Unknown, Hypotension, 09/05/21) latex (Verified Allergy, Unknown, 04/28/20) Penicillins (Verified Adverse Reaction, Unknown, Vomiting, 09/05/21) amoxicillin (Verified Adverse Reaction, Unknown, Vomiting, 09/05/21) nitrofurantoin (Verified Adverse Reaction, Unknown, Vomiting, 09/05/21) Vomiting and dysphoria Patient Home Medication List Home Medication List Reviewed: Yes Doxycycline Hyclate (Doxycycline Hyclate) 100 Mg Tablet, 100 MG PO BID Prescribed by: ROSALIA POP on 04/28/20 0230 Doxycycline Monohydrate (Doxycycline Monohydrate) 100 Mg Capsule, 100 MG PO BID Prescribed by: LUIS SHARPE on 09/24/21 1533 Metronidazole (Metronidazole) 500 Mg Tablet, 500 MG PO BID Prescribed by: LUIS SHARPE on 09/24/21 1533 Ondansetron (Ondansetron Odt) 4 Mg Tab.rapdis, 4 MG SL Q4H PRN for NAUSEA/VOMITING Prescribed by: DARIUS BOYD on 12/03/21 7289 Review of Systems Review of Systems Constitutional: no symptoms reported EENTM: No Symptoms Reported Respiratory: No Symptoms Reported Cardiovascular: No Symptoms Reported Gastrointestinal: See HPI Genitourinary: See HPI Musculoskeletal: no symptoms reported Skin: no symptoms reported Psychiatric/Neurological: No Symptoms Reported Endocrine: No Symptoms Reported Hematologic/Lymphatic: No Symptoms Reported Past Kmtujme-Ecgblo-Ljxkok Hx Patient Social History Tobacco Use?: No Use of E-Cig and/or Vaping dev: No Substance use?: No Alcohol Use?: No Pt feels they are or have been: No Immunizations Up To Date Influenza Vaccine Up-to-Date: No; Not Current Seasonal Allergies Seasonal Allergies: No Past Medical History Surgery/Hospitalization HX: pmh: anxiety, bipolar Surgeries: No Respiratory: No Cardiac: No Neurological: No : No Reproductive Disorders: Yes (Abnormal uterine bleeding) 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 oz. kg; 28.00 BMI Method: General Appearance: WD/WN, no apparent distress HEENT: PERRL/EOMI, normal ENT inspection Neck: normal inspection Respiratory: lungs clear, normal breath sounds, no respiratory distress Cardiovascular: regular rate, rhythm, no edema, no murmur Gastrointestinal: normal bowel sounds, soft, tenderness (Throughout the right abdomen with positive Lu sign) Extremities: normal inspection, no pedal edema Back: normal inspection Neurologic/Psychiatric: alert, normal mood/affect, oriented x 3 Skin: normal color, warm/dry Progress/Results/Core Measures Results/Orders Lab Results Laboratory Tests Test 12/03/21 15:40 Range/Units White Blood Count 7.4 4.3-11.0 10^3/uL Red Blood Count 4.61 3.80-5.11 10^6/uL Hemoglobin 13.5 11.5-16.0 g/dL Hematocrit 39 35-52 % Mean Corpuscular Volume 86 80-99 fL Mean Corpuscular Hemoglobin 29 25-34 pg Mean Corpuscular Hemoglobin Concent 34 32-36 g/dL Red Cell Distribution Width 12.9 10.0-14.5 % Platelet Count 236 130-400 10^3/uL Mean Platelet Volume 10.4 9.0-12.2 fL Immature Granulocyte % (Auto) 1 % Neutrophils (%) (Auto) 59 42-75 % Lymphocytes (%) (Auto) 34 12-44 % Monocytes (%) (Auto) 6 0-12 % Eosinophils (%) (Auto) 1 0-10 % Basophils (%) (Auto) 0 0-10 % Neutrophils # (Auto) 4.3 1.8-7.8 10^3/uL Lymphocytes # (Auto) 2.5 1.0-4.0 10^3/uL Monocytes # (Auto) 0.4 0.0-1.0 10^3/uL Eosinophils # (Auto) 0.1 0.0-0.3 10^3/uL Basophils # (Auto) 0.0 0.0-0.1 10^3/uL Immature Granulocyte # (Auto) 0.0 0.0-0.1 10^3/uL Urine Color YELLOW Urine Clarity CLEAR Urine pH 5.0 5-9 Urine Specific [place] 1.025 H 1.016-1.022 Urine Protein NEGATIVE NEGATIVE Urine Glucose (UA) 3+ H NEGATIVE Urine Ketones NEGATIVE NEGATIVE Urine Nitrite NEGATIVE NEGATIVE Urine Bilirubin NEGATIVE NEGATIVE Urine Urobilinogen 0.2 < = 1.0 MG/DL Urine Leukocyte Esterase NEGATIVE NEGATIVE Urine RBC (Auto) NEGATIVE NEGATIVE Urine RBC 0-2 /HPF Urine WBC RARE /HPF Urine Squamous Epithelial Cells 2-5 /HPF Urine Crystals NONE /LPF Urine Bacteria NEGATIVE /HPF Urine Casts NONE /LPF Urine Mucus NEGATIVE /LPF Urine Culture Indicated NO Sodium Level 135 135-145 MMOL/L Potassium Level 3.7 3.6-5.0 MMOL/L Chloride Level 100 98-107 MMOL/L Carbon Dioxide Level 22 21-32 MMOL/L Anion Gap 13 5-14 MMOL/L Blood Urea Nitrogen 8 7-18 MG/DL Creatinine 0.92 0.60-1.30 MG/DL Estimat Glomerular Filtration Rate 86 BUN/Creatinine Ratio 9 Glucose Level 309 H 70-105 MG/DL Calcium Level 9.3 8.5-10.1 MG/DL Corrected Calcium 8.5-10.1 MG/DL Total Bilirubin 0.7 0.1-1.0 MG/DL Aspartate Amino Transf (AST/SGOT) 56 H 5-34 U/L Alanine Aminotransferase (ALT/SGPT) 94 H 0-55 U/L Alkaline Phosphatase 136 40-136 U/L C-Reactive Protein High Sensitivity 0.84 H 0.00-0.50 MG/DL Total Protein 7.7 6.4-8.2 GM/DL Albumin 4.7 H 3.2-4.5 GM/DL Serum Test, Qualitative NEGATIVE NEGATIVE My Orders Orders - DARIUS SCHMIDT MD Cbc With Automated Diff (12/03/21 15:42) Comprehensive Metabolic Panel (12/03/21 15:42) Hs C Reactive Protein (12/03/21 15:42) Hcg,Qualitative Serum (12/03/21 15:42) Ua Culture If Indicated (12/03/21 15:42) Ed Iv/Invasive Line Start (12/03/21 15:42) Ondansetron Injection (Zofran Injectio (12/03/21 17:15) Medications Given in ED Current Medications Medications Dose Ordered Sig/Godwin Route Start Time Stop Time Status Last Admin Dose Admin Ondansetron HCl 4 mg ONCE ONCE IVP 12/03/21 17:15 12/03/21 17:16 DC 12/03/21 17:25 4 MG Vital Signs/I&O 12/03/21 15:27 Temp 36.7 Pulse 106 Resp 16 B/P (MAP) 134/92 (106) Pulse Ox 98 O2 Delivery Room Air Blood Pressure Mean: 106 Departure Impression Primary Impression: Right-sided abdominal pain of unknown cause Additional Impressions: Nausea Pelvic cramping Abnormal vaginal bleeding Hyperglycemia Disposition: 01 HOME, SELF-CARE Condition: Improved Departure-Patient Inst. Decision time for Depature: 17:06 Referrals: [facility] (PCP/Family) Primary Care Physician Patient Instructions: Abdominal Pain, Adult ED, Intrauterine Devices (IUD) Add. Discharge Instructions: Return to the hospital and check in at registration between 7:30 and 8:00 tomorrow for your ultrasound. Bring the order form with you. Do not eat or drink anything after midnight. You may take Tylenol (acetaminophen) up to 1000 mg every 6 hours as needed for pain. Eat a diet very low in fats, greases, and oils. Drink plenty of clear liquids. Return to the ER if you have worsening symptoms despite following these instructions. Follow-up with your primary care provider soon as possible to discuss your IUD. All discharge instructions reviewed with patient and/or family. Voiced understanding. Scripts Ondansetron (Ondansetron Odt) 4 Mg Tab.rapdis 4 MG SL Q4H PRN for NAUSEA/VOMITING, #10 TAB Prov: DARIUS SCHMIDT MD 12/03/21 Copy Copies To 1: [facility]/DARIUS MARTÍNEZ MD Dec 03, 2021 17:10
[2021-12-03] MEDS ORDERED: ONDANSETRON 4 MG/2 ML (SDV) Z0FRAN IVP ONE (17:15)
[2021-12-03 17:29] VITALS: BP 130/82
== END 2021-12-03 17:29 | disposition home or self-care (01) ==
LOC: EDUNIT# 15:19 → ER 15:20
DX: N93.9 Abnormal uterine and vaginal bleeding, unspecified (principal); R11.0 Nausea; R73.9 Hyperglycemia, unspecified; Z91.040 Latex allergy status; Z97.5 Presence of (intrauterine) contraceptive device; Z32.02 Encounter for pregnancy test, result negative; Z28.310 Unvaccinated for COVID-19
CPT/HCPCS: 36415; 80053; 81000; 84703; 85025; 86141

== ENCOUNTER 2021-12-08 19:39 | Emergency (ER) | payer OTHER, MEDICAID ==
[~2021-12-08] VITALS: Ht 165.1 cm; Wt 78.0 kg
[~2021-12-08 19:39] MED LIST changes: +ONDA4TAB11 SL
[2021-12-08 19:48] VITALS: BP 153/96
[2021-12-08 20:09] LABS: BILIRUBIN,URINE NEGATIVE (NEGATIVE); CLARITY,URINE CLEAR; COLOR,URINE YELLOW; GLUCOSE, URINE (UA) 3+ (NEGATIVE); KETONES,URINE 1+ (NEGATIVE); LEUKOCYTE ESTERASE ,URINE NEGATIVE (NEGATIVE); NITRITE,URINE NEGATIVE (NEGATIVE); PH,URINE 5.5 (5-9); PROTEIN,URINE NEGATIVE (NEGATIVE)
--- NOTE | 2021-12-08 20:14 | ED GU-Female ---
General Chief Complaint: - Reproductive Stated Complaint: IUD ISSUES Source: patient Exam Limitations: no limitations (EHSAN JIMENEZ) History of Present Illness Date Seen by Provider: Dec 08, 2021 Time Seen by Provider: 20:10 Initial Comments Patient is a 31-year-old female presents the ED concern for possible parasite in her urine. She states today when she urinated she noticed this long parasitic looking material in the toilet. She is concerned for possible parasite. She does have a copper IUD placed 5 months ago. She has had intermittent vaginal bleeding since then and is wanting to get her IUD removed. She reports some mild thin discharge over the past few days. She states she has a history of PID and has been treated previously. Not concern for sexual transmitted infection. No urinary symptoms. She reports some mild abdominal discomfort to her right side of her abdomen yesterday and today but denies fever, chills, headache, di zziness, visual changes. (EHSAN JIMENEZ) Allergies and Home Medications Allergies Coded Allergies: ibuprofen (Verified Allergy, Unknown, Hypotension, 09/05/21) latex (Verified Allergy, Unknown, 04/28/20) Penicillins (Verified Adverse Reaction, Unknown, Vomiting, 09/05/21) amoxicillin (Verified Adverse Reaction, Unknown, Vomiting, 09/05/21) nitrofurantoin (Verified Adverse Reaction, Unknown, Vomiting, 09/05/21) Vomiting and dysphoria Patient Home Medication List Home Medication List Reviewed: Yes (EHSAN JIMENEZ) Doxycycline Hyclate (Doxycycline Hyclate) 100 Mg Tablet, 100 MG PO BID Prescribed by: ROSALIA POP on 04/28/20 0230 Doxycycline Monohydrate (Doxycycline Monohydrate) 100 Mg Capsule, 100 MG PO BID Prescribed by: LUIS SHARPE on 09/24/21 153 Metronidazole (Metronidazole) 500 Mg Tablet, 500 MG PO BID Prescribed by: LUIS SHARPE on 09/24/21 1533 Ondansetron (Ondansetron Odt) 4 Mg Tab.rapdis, 4 MG SL Q4H PRN for NAUSEA/VOMITING Prescribed by: DARIUS BOYD on 12/03/21 1709 Review of Systems Review of Systems Constitutional: No chills, No diaphoresis, No malaise, No weakness EENTM: No blurred vision, No double vision Respiratory: No cough, No dyspnea on exertion Cardiovascular: No chest pain Gastrointestinal: abdominal pain; No diarrhea, No nausea, No vomiting Genitourinary: denies burning, denies discharge, denies urgency, denies other Musculoskeletal: No back pain, No joint pain Skin: No change in color, No change in hair/nails (EHSAN JIMENEZ) All Other Systemes Reviewed Negative Unless Noted: Yes (EHSAN JIMENEZ) Past Vgpoxwp-Kuvlbw-Pghfnf Hx Patient Social History Tobacco Use?: No Use of E-Cig and/or Vaping dev: No Substance use?: No Alcohol Use?: No Pt feels they are or have been: No (EHSAN JIMENEZ) Immunizations Up To Date First/Initial COVID19 Vaccinat: DECLINED (EHSAN JIMENEZ) Seasonal Allergies Seasonal Allergies: No (EHSAN JIMENEZ) Past Medical History Surgery/Hospitalization HX: pmh: anxiety, bipolar Surgeries: No Respiratory: No Cardiac: No Neurological: No Reproductive Disorders: Yes (Abnormal uterine bleeding) [employer] History: IUD Sexually Transmitted Disease: Yes (Chlamydia and gonorrhea) Genitourinary: No Gastrointestinal: No Musculoskeletal: No Endocrine: No HEENT: No Cancer: No Psychosocial: Yes ADD/ADHD, Anxiety, Bipolar Integumentary: No Blood Disorders: No (EHSAN JIMENEZ) Physical Exam Vital Signs Vital Signs - First Documented 12/08/21 19:48 Temp 36.2 Pulse 100 Resp 18 B/P (MAP) 153/96 (115) Pulse Ox 97 O2 Delivery Room Air (KALEIGH,AMANDA K DO) Vital Signs Capillary Refill : (EHSAN JIMENEZ) Height, Weight, BMI Height: '" Weight: lbs. oz. kg; 28.00 BMI Method: General Appearance: WD/WN, no apparent distress HEENT: PERRL/EOMI, normal ENT inspection, TMs normal, pharynx normal Neck: non-tender, full range of motion Cardiovascular: regular rate, rhythm, no edema, no gallop Respiratory: chest non-tender, lungs clear, normal breath sounds Gastrointestinal: normal bowel sounds, non tender, soft Pelvic: normal external exam, normal adnexa Back: normal inspection, no CVA tenderness Extremities: normal range of motion, non-tender, normal inspection, no pedal edema Neurologic/Psychiatric: core setter II-XII nml as tested, no motor/sensory deficits, alert, normal mood/affect Skin: normal color, warm/dry (EHSAN JIMENEZ) Progress/Results/Core Measures Suspected Sepsis SIRS Temperature: Pulse: Respiratory Rate: Blood Pressure / Mean: (EHSAN JIMENEZ) Results/Orders Lab Results Laboratory Tests Test 12/08/21 20:00 12/08/21 20:25 Range/Units Urine Color YELLOW Urine Clarity CLEAR Urine pH 5.5 5-9 Urine Specific [place] >=1.030 1.016-1.022 Urine Protein NEGATIVE NEGATIVE Urine Glucose (UA) 3+ H NEGATIVE Urine Ketones 1+ H NEGATIVE Urine Nitrite NEGATIVE NEGATIVE Urine Bilirubin NEGATIVE NEGATIVE Urine Urobilinogen 0.2 < = 1.0 MG/DL Urine Leukocyte Esterase NEGATIVE NEGATIVE Urine RBC (Auto) 2+ H NEGATIVE Urine RBC 2-5 H /HPF Urine WBC 0-2 /HPF Urine Squamous Epithelial Cells 2-5 /HPF Urine Crystals NONE /LPF Urine Bacteria TRACE /HPF Urine Casts PRESENT /LPF Urine Hyaline Casts RARE /LPF Urine Mucus NEGATIVE /LPF Urine Culture Indicated NO Urine Test NEGATIVE NEGATIVE (AMANDA FARRIS DO) Micro Results Microbiology 12/08/21 Wet Prep - Final, Complete (AMANDA FARRIS DO) Vital Signs/I&O Capillary Refill : (EHSAN JIMENEZ) Departure Communication (PCP) Patient is concerned for possible parasite in her urine. She showed me a picture of the toilet paper hard to distinguish what this was. It looks like a string concerning that this may be result from her IUD. She has been having intermittent vaginal bleeding over the past 2 to 3 months with some pelvic discomfort. She has been seen here previously with abdominal discomfort and iud complications. Urinalysis was negative for infection. Wet mount was otherwise unremarkable. Not concern for sexual transmitted infection. Abdominal x-ray shows IUD in the pelvic. No vomiting, diarrhea. No abdominal tenderness. Outpatient follow-up with Operative Supervisor for further evaluation. If able to collect a sample this would be reasonable. Refused pelvic exam (EHSAN JIMENEZ) Impression Primary Impression: Pelvic pain Disposition: 01 HOME, SELF-CARE Condition: Stable Departure-Patient Inst. Decision time for Depature: 21:03 (EHSAN JIMENEZ) Referrals: [facility] [place]) Primary Care Physician BLAISE HDEZ MD Patient Instructions: Pelvic Pain ED ATTENDING PHYSICIAN NOTE: I WAS PHYSICALLY PRESENT ER PHYSICIAN, BUT I WAS NOT INVOLVED IN ANY DECISION MAKING OR ANY CARE OF THIS PATIENT, AND I AM NOT COLLABORATING PHYSICIAN. (AMANDA FARRIS DO) EHSAN JIMENEZ Dec 08, 2021 20:14 AMANDA FARRIS DO Dec 09, 2021 18:22
[2021-12-08 20:35] LABS: BACTERIA,URINE TRACE /HPF; HYALINE CASTS, URINE RARE /LPF; WBC,URINE 0-2 /HPF
--- NOTE | 2021-12-08 20:52 | Diagnostic Imaging Report ---
INDICATION: Pelvic pain. COMPARISON: None. FINDINGS: Two frontal supine radiographic views of the abdomen were obtained and demonstrate nondistended loops of small bowel. There is no large collection of free peritoneal air. Moderate air and stool are seen scattered throughout the colon. No unexpected extraosseous calcifications or radiopaque foreign bodies are seen. Bony structures show no gross acute abnormalities. Indwelling IUD is noted. IMPRESSION: 1. Nonobstructed small bowel gas pattern. 2. Moderate colonic air and stool. Please correlate for constipation. Dictated by: Dictated on workstation # [id number]
== END 2021-12-08 21:15 | disposition home or self-care (01) ==
LOC: EDUNIT# 19:39 → ER 19:41
DX: R10.2 Pelvic and perineal pain (principal); Z97.5 Presence of (intrauterine) contraceptive device; Z91.040 Latex allergy status; Z28.310 Unvaccinated for COVID-19
CPT/HCPCS: 36415; 74018; 81000; 84703; 87210; 87491; 87591; 99284

== ENCOUNTER 2022-01-06 05:46 | Emergency (ER) | payer MEDICAID, OTHER ==
[~2022-01-06] VITALS: Ht 165 cm; Wt 79.0 kg
--- NOTE | 2022-01-06 06:48 | ED General ---
General Chief Complaint: COVID19 Suspect/Confirmed Stated Complaint: COUGH,CONGESTION,SORE THROAT,HEADACHE Nursing Triage Note: c/o upper chest congestion, headache, sore throat x5 days. reports childern covid + last week. Source of Information: Patient Exam Limitations: No Limitations (TITUS CONTRERAS MED STUDENT) History of Present Illness Date Seen by Provider: Jan 06, 2022 Time Seen by Provider: 06:30 Initial Comments Riana Deleon is a 31 yo female who presented to ED for congestion, headache and dizziness. Pt has hx of PID with ED visit 12/12/21 for dysuria and abdominal pain secondary to IUD. Pt states she has had dizziness, headache, sore throat and congestion for the last week. She also endorses SOA on exertion. Pt reports her children tested positive for COVID 2 weeks ago and had similiar sxs. She has taken 7 at home COVID tests that were all negative. Pt took robitussin which did help with cough, but made her nauseous. She denies fever, chills, CP, SOA, vomiting, abdominal pain, diarrhea, constipation, numbness or weakness. Pt reports some green vaginal discharge for the last week and a half. When seen on 12/08/21 pt tested negative for GC/Chlamydia and Trichomonas. UA was unremarkable. COVID and influenza swabs collected. Pt is tachycardic and hypertensive. Will continue to monitor. Modifying Factors: improves with Medication (Robitussin) Associated Systoms: Cough, Headaches, Nausea/Vomiting, Shortness of Air (TITUS CONTRERAS MED STUDENT) Allergies and Home Medications Allergies Coded Allergies: ibuprofen (Verified Allergy, Unknown, Hypotension, 09/05/21) latex (Verified Allergy, Unknown, 04/28/20) Penicillins (Verified Adverse Reaction, Unknown, Vomiting, 09/05/21) amoxicillin (Verified Adverse Reaction, Unknown, Vomiting, 09/05/21) nitrofurantoin (Verified Adverse Reaction, Unknown, Vomiting, 09/05/21) Vomiting and dysphoria Patient Home Medication List Home Medication List Reviewed: Yes (BRENDA VELÁZQUEZ MD) Discontinued Medications Doxycycline Hyclate (Doxycycline Hyclate) 100 Mg Tablet, 100 MG PO BID Discontinued Reason: No Longer Taking Prescribed by: ROSALIA POP on 04/28/20 0230 Last Action: Discontinued Doxycycline Monohydrate (Doxycycline Monohydrate) 100 Mg Capsule, 100 MG PO BID Discontinued Reason: No Longer Taking Prescribed by: LUIS SHARPE on 09/24/21 1533 Last Action: Discontinued Metronidazole (Metronidazole) 500 Mg Tablet, 500 MG PO BID Discontinued Reason: No Longer Taking Prescribed by: LUIS SHARPE on 09/24/21 1533 Last Action: Discontinued Ondansetron (Ondansetron Odt) 4 Mg Tab.rapdis, 4 MG SL Q4H PRN for NAUSEA/VOMITING Discontinued Reason: No Longer Taking Prescribed by: DARIUS BOYD on 12/03/21 1709 Last Action: Discontinued Review of Systems Review of Systems Constitutional: No chills; dizziness; No fever EENTM: No blurred vision, No vision loss Respiratory: cough, dyspnea on exertion Cardiovascular: No chest pain, No palpitations Gastrointestinal: No abdominal pain, No constipation, No diarrhea; nausea; No vomiting Genitourinary: discharge (green vaginal discharge); No dysuria, No frequency Musculoskeletal: back pain (right flank pain) Skin: no symptoms reported Psychiatric/Neurological: Headache, Paresthesia (bilateral hands) Hematologic/Lymphatic: No Symptoms Reported Immunological/Allergic: no symptoms reported (ITTUS CONTRERAS STUDENT) Past Uryncre-Lvburh-Zkfymq Hx Patient Social History Tobacco Use?: No Substance use?: No Alcohol Use?: No Pt feels they are or have been: No (TITUS CONTRERAS STUDENT) Immunizations Up To Date First/Initial COVID19 Vaccinat: DECLINED Second COVID19 Vaccination [place]: DECLINED Third COVID19 Vaccination Date: DECLINED (TITUS CONTRERAS STUDENT) Seasonal Allergies Seasonal Allergies: No (TITUS CONTRERAS STUDENT) Past Medical History Surgery/Hospitalization HX: pmh: anxiety, bipolar Surgeries: No Respiratory: No Cardiac: No Neurological: No Reproductive Disorders: Yes (Abnormal uterine bleeding) [employer] MACHINE TENDER History: IUD Sexually Transmitted Disease: Yes (Chlamydia and gonorrhea) Genitourinary: No Gastrointestinal: No Musculoskeletal: No Endocrine: No HEENT: No Cancer: No Psychosocial: Yes ADD/ADHD, Anxiety, Bipolar Integumentary: No Blood Disorders: No (TITUS CONTRERAS STUDENT) Physical Exam Vital Signs Vital Signs - First Documented 01/06/22 05:50 Temp 36.1 Pulse 100 Resp 18 B/P (MAP) 150/109 (123) Pulse Ox 99 O2 Delivery Room Air (BRENDA VELÁZQUEZ MD) Vital Signs Capillary Refill : Less Than 3 Seconds (TITUS CONTRERAS MED STUDENT) Height, Weight, BMI Height: '" Weight: lbs. oz. 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 Skin: Normal Color, Warm/Dry Lymphatic: No Adenopathy (TITUS CONTRERAS STUDENT) Progress/Results/Core Measures Suspected Sepsis SIRS Temperature: Pulse: 100 Respiratory Rate: 18 Blood Pressure 150 /109 Mean: 123 (TITUS CONTRERAS STUDENT) Results/Orders Lab Results Laboratory Tests Test 01/06/22 05:56 Range/Units Influenza Type A (RT-PCR) Not Detected Not Detecte Influenza Type B (RT-PCR) Not Detected Not Detecte SARS-CoV-2 RNA (RT-PCR) Negative Not Detecte (BRENDA VELÁZQUEZ MD) My Orders Orders - BRENDA VELÁZQUEZ MD Covid 19 Inhouse Test (01/06/22 05:59) Influenza A And B By Pcr (01/06/22 05:59) Isolation Central Supply Req (01/06/22 05:59) (BRENDA VELÁZQUEZ MD) Vital Signs/I&O 01/06/22 01/06/22 05:50 07:20 Temp 36.1 Pulse 100 100 Resp 18 18 B/P (MAP) 150/109 (123) 150/109 Pulse Ox 99 99 O2 Delivery Room Air Room Air (BRENDA VELÁZQUEZ MD) Vital Signs/I&O Capillary Refill : Less Than 3 Seconds (TITUS CONTRERAS MED STUDENT) Blood Pressure Mean: 123 Progress Note : Time: 07:08 Progress Note COVID and influenza swabs negative. (TITUS CONTRERAS MED STUDENT) Progress Note : Time: 07:11 Progress Note 31yo female with congestion, cough, sore throat, dizzy and headache. Children with covid about 10 days ago. 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 Slightly decreased appetite. non smoker. No other complaint of illness. Physical exam unremarkable - except persistent slightly productive cough. Throat normal. no LAD. +nasal congestion. No wheezing. VSS - slightly hypertensive. Patient counselled on hygiene at work/masking. avoidance of tobacco smoke. OTC supportive care, cough drops, hydration, Stephanie/mucinex. No clinical or objective findings to warrant further eval/study. (BRENDA VELÁZQUEZ MD) Departure Impression Primary Impression: Bronchitis Disposition: 01 HOME, SELF-CARE Condition: Stable Departure-Patient Inst. Decision time for Depature: 07:14 (BRENDA VELÁZQUEZ MD) Referrals: [facility] (PCP/Family) Primary Care Physician Patient Instructions: Acute Bronchitis, Adult (DC) Add. Discharge Instructions: Drink plenty of fluids to stay well hydrated. Over the counter cough medications/mucinex to help with congestion/cough. Stephanie/zyrtec or claritin may help with mucous production as well and dry up secretions. Avoid tobacco smoke exposure. Return to the Emergency Department for any new, concerning or emergent complaints. Verification and Attestation of Medical Student E/M Service A medical student performed and documented this service in my presence. I reviewed and verified all information documented by the medical student and made modifications to such information, when appropriate. I personally performed the physical exam and medical decision making. Brenda Velázquez, Jan 06, 2022,07:13 (BRENDA VELÁZQUEZ MD) Copy Copies To 1: CHIDI BERGMAN [place] A MED STUDENT Jan 06, 2022 06:48 BRENDA VELÁZQUEZ MD Jan 06, 2022 07:15
[2022-01-06 07:20] VITALS: BP 150/109
== END 2022-01-06 07:20 | disposition home or self-care (01) ==
LOC: ER 05:47
DX: J40 Bronchitis, not specified as acute or chronic (principal); Z91.040 Latex allergy status; Z20.822 Contact with and (suspected) exposure to COVID-19; Z28.310 Unvaccinated for COVID-19
CPT/HCPCS: 87636; 99283

== ENCOUNTER 2023-03-25 16:02 | Emergency (ER) | payer MEDICAID, OTHER ==
[~2023-03-25] VITALS: Ht 165 cm; Wt 65.7 kg
[~2023-03-25 16:02] MED LIST changes: -DOXY-311 PO; +DOXY-444 PO
[2023-03-25] MEDS ORDERED: NS IV 1000 ML 1,000 ML IV STA (16:32)
--- NOTE | 2023-03-25 16:38 | ED General ---
General Chief Complaint: Glucose Problems Stated Complaint: ELEVATED BLOOD SUGAR Nursing Triage Note: PT AMBULATES TO TRIAGE WITH C/O DIZZINESS, LIGHTHEADEDNESS WHILE WALKING THROUGH [employer]. PT HAS TYPE 2 DM, TAKES METFORMIN 1000MG BID, PT DOES NOT CHECK HER BG DUE TO NOT HAVING THE SUPPLIES. BS IS 296 IN TRIAGE. Source of Information: Patient Exam Limitations: No Limitations History of Present Illness Date Seen by Provider: Mar 25, 2023 Time Seen by Provider: 16:33 Initial Comments Patient is a 32-year-old female who presents to ED for dizziness and lighthead edness. This occurred about 30 minutes ago. She states she was walking through [employer] at the time. Patient is a type II diabetic currently on metformin 1000 mg twice daily. She not able to check her blood pressure. She did drink a full bottle of water which seemed to improve. She states she has been experiencing some cramping and swelling in her lower extremities over the past few days. Described as charley horses. She denies any bruising or redness or recent travels or surgeries. She denies of any chest pain, short of breath, cough, sore throat, ear pain, headache, nausea, vomiting, diarrhea visual changes. She states her blood sugar has been as high as 500 in the past. She reports frequent urination without any pain or discomfort. She does report some vaginal itching. She is concern for sexual transmitted faction. Allergies and Home Medications Allergies Coded Allergies: ibuprofen (Verified Allergy, Unknown, Hypotension, 09/05/21) latex (Verified Allergy, Unknown, 04/28/20) Penicillins (Verified Adverse Reaction, Unknown, Vomiting, 09/05/21) amoxicillin (Verified Adverse Reaction, Unknown, Vomiting, 09/05/21) nitrofurantoin (Verified Adverse Reaction, Unknown, Vomiting, 09/05/21) Vomiting and dysphoria Patient Home Medication List Home Medication List Reviewed: Yes Review of Systems Review of Systems Constitutional: No chills, No diaphoresis; dizziness; No fever, No malaise, No weakness EENTM: No hearing loss, No ear pain, No blurred vision, No double vision Respiratory: No cough, No dyspnea on exertion Cardiovascular: No chest pain Gastrointestinal: No abdominal pain, No diarrhea, No nausea, No vomiting Musculoskeletal: No back pain, No joint pain, No joint swelling, No muscle pain, No muscle stiffness Skin: No change in color, No change in hair/nails All Other Systems Reviewed Negative Unless Noted: Yes Past [id number]-[id number]-[id number] Hx Immunizations Up To Date First/Initial COVID19 Vaccinat: DECLINED Second COVID19 Vaccination [place]: DECLINED Third COVID19 Vaccination Date: DECLINED Seasonal Allergies Seasonal Allergies: No Past Medical History Surgery/Hospitalization HX: pmh: anxiety, bipolar Surgeries: No Respiratory: No Cardiac: No Neurological: No Last Menstrual Period: Mar 24, 2023 Reproductive Disorders: Yes (Abnormal uterine bleeding) [employer] History: IUD Sexually Transmitted Disease: Yes (Chlamydia and gonorrhea) Genitourinary: No Gastrointestinal: No Musculoskeletal: No Endocrine: No HEENT: No Cancer: No Psychosocial: Yes ADD/ADHD, Anxiety, Bipolar Integumentary: No Blood Disorders: No Physical Exam Vital Signs Vital Signs - First Documented 03/25/23 16:14 Temp 36.5 Pulse 88 Resp 20 B/P (MAP) 140/97 (111) Pulse Ox 98 O2 Delivery Room Air Capillary Refill : Less Than 3 Seconds Height, Weight, BMI Height: '" Weight: lbs. oz. kg; 24.00 BMI Method: General Appearance: No Apparent Distress, WD/WN Eyes: Bilateral Eye Normal Inspection, Bilateral Eye PERRL, Bilateral Eye EOMI HEENT: PERRL/EOMI, TMs Normal, Normal ENT Inspection, Pharynx Normal Neck: Full Range of Motion, Normal Inspection, Non Tender Respiratory: Chest Non Tender, Lungs Clear, Normal Breath Sounds, No Accessory Muscle Use, No Respiratory Distress Cardiovascular: Regular Rate, Rhythm, No Edema, No Gallop Gastrointestinal: Normal Bowel Sounds, No Organomegaly, No Pulsatile Mass, Non Tender Back: Normal Inspection, No CVA Tenderness Extremity: Normal Capillary Refill, Normal Inspection, Normal Range of Motion, Non Tender Neurologic/Psychiatric: Oriented x3, No Motor/Sensory Deficits, Normal Mood/Affect, youth probation officer II-XII Norm as Tested Skin: Normal Color, Warm/Dry Progress/Results/Core Measures Suspected Sepsis SIRS Temperature: Pulse: 88 Respiratory Rate: 20 Laboratory Tests 03/25/23 16:45: White Blood Count 6.4 Blood Pressure 140 /97 Mean: 111 Laboratory Tests 03/25/23 16:45: Creatinine 0.77, Platelet Count 273, Total Bilirubin 0.6 Results/Orders Lab Results Laboratory Tests Test 03/25/23 16:17 03/25/23 16:45 11/20/23 17:51 Range/Units Glucometer 296 H 248 H 70-110 MG/DL White Blood Count 6.4 4.3-11.0 10^3/uL Red Blood Count 4.81 3.80-5.11 10^6/uL Hemoglobin 13.7 11.5-16.0 g/dL Hematocrit 41 35-52 % Mean Corpuscular Volume 86 80-99 fL Mean Corpuscular Hemoglobin 29 25-34 pg Mean Corpuscular Hemoglobin Concent 33 32-36 g/dL Red Cell Distribution Width 14.0 10.0-14.5 % Platelet Count 273 130-400 10^3/uL Mean Platelet Volume 10.7 9.0-12.2 fL Immature Granulocyte % (Auto) 2 % Neutrophils (%) (Auto) 61 42-75 % Lymphocytes (%) (Auto) 28 12-44 % Monocytes (%) (Auto) 7 0-12 % Eosinophils (%) (Auto) 1 0-10 % Basophils (%) (Auto) 1 0-10 % Neutrophils # (Auto) 3.9 1.8-7.8 10^3/uL Lymphocytes # (Auto) 1.8 1.0-4.0 10^3/uL Monocytes # (Auto) 0.5 0.0-1.0 10^3/uL Eosinophils # (Auto) 0.1 0.0-0.3 10^3/uL Basophils # (Auto) 0.1 0.0-0.1 10^3/uL Immature Granulocyte # (Auto) 0.1 0.0-0.1 10^3/uL Urine Color YELLOW Urine Clarity CLEAR Urine pH 6.0 5-9 Urine Specific [place] 1.025 H 1.016-1.022 Urine Protein NEGATIVE NEGATIVE Urine Glucose (UA) 3+ H NEGATIVE Urine Ketones 2+ H NEGATIVE Urine Nitrite NEGATIVE NEGATIVE Urine Bilirubin NEGATIVE NEGATIVE Urine Urobilinogen 0.2 < = 1.0 MG/DL Urine Leukocyte Esterase NEGATIVE NEGATIVE Urine RBC (Auto) 3+ H NEGATIVE Urine RBC 10-25 H /HPF Urine WBC NONE /HPF Urine Squamous Epithelial Cells RARE /HPF Urine Crystals NONE /LPF Urine Bacteria NEGATIVE /HPF Urine Casts NONE /LPF Urine Mucus NEGATIVE /LPF Urine Culture Indicated NO Urine Test NEGATIVE NEGATIVE Sodium Level 132 L 135-145 MMOL/L Potassium Level 3.5 L 3.6-5.0 MMOL/L Chloride Level 97 L 98-107 MMOL/L Carbon Dioxide Level 24 21-32 MMOL/L Anion Gap 11 5-14 MMOL/L Blood Urea Nitrogen 8 7-18 MG/DL Creatinine 0.77 0.60-1.30 MG/DL Estimat Glomerular Filtration Rate 106 BUN/Creatinine Ratio 10 Glucose Level 306 H 70-105 MG/DL Calcium Level 9.0 8.5-10.1 MG/DL Corrected Calcium 8.6 8.5-10.1 MG/DL Magnesium Level 2.0 1.6-2.4 MG/DL Total Bilirubin 0.6 0.1-1.0 MG/DL Aspartate Amino Transf (AST/SGOT) 21 5-34 U/L Alanine Aminotransferase (ALT/SGPT) 27 0-55 U/L Alkaline Phosphatase 138 H 40-136 U/L Total Protein 7.7 6.4-8.2 GM/DL Albumin 4.5 3.2-4.5 GM/DL Beta-Hydroxybutyrate (Chem panel) 1.72 H 0.00-0.27 MMOL/L My Orders Orders - EHSNA JIMENEZ Accucheck Stat ONCE (03/25/23 16:06) Cbc And Automated Diff (03/25/23 16:32) Comprehensive Metabolic Panel (03/25/23 16:32) Magnesium (03/25/23 16:32) Ua Culture If Indicated (03/25/23 16:32) Beta Hydroxybutyrate (03/25/23 16:32) Ns Iv 1000 Ml (Ns Iv 1000 Ml) (03/25/23 16:32) Rpr With Fta-Abs Reflex If Pos (03/25/23 16:38) Ed Iv/Invasive Line Start (03/25/23 16:46) Neis Roosevelt Dna Urine Test (03/25/23 16:50) Chlamydia Trachomatis Urine (03/25/23 16:50) Hcg,Qualitative Urine (03/25/23 17:17) Vital Signs/I&O 03/25/23 03/25/23 16:14 18:34 Temp 36.5 36.5 Pulse 88 84 Resp 20 20 B/P (MAP) 140/97 (111) 102/74 Pulse Ox 98 98 O2 Delivery Room Air Room Air Capillary Refill : Less Than 3 Seconds Blood Pressure Mean: 111 Point of Care Testing Finger Stick Blood Glucose: 296 Blood Glucose Action Taken: DR RAMIREZ Departure Communication (PCP) Patient is a 32-year-old female with a history of type 2 diabetes currently on metformin 2000 mg daily presents to ED for lightheaded and dizziness and elevated blood sugar. This occurred 30 minutes before arrival. On arrival blood sugar 296. Dizziness lightheadedness improved after drinking a bottle water. She states she did drink a Sprite right before the symptoms did occur while walking at [facility]. She reports increase caffeine this morning with coffee. Vital signs stable. She reports frequent urination. She would like to be checked for sexual transmitted infection. She does have some vaginal itching without any vaginal discharge, pain with intercourse, pain with urination, vaginal bleeding. Last menstrual cycle a week and a half ago. Does have a copper IUD. She refused pelvic exam or swab. She agreed to Chlamydia gonorrhea through urine. I did add RPR. Urinalysis was negative for infection but did show glucose and ketones. Negative for . CBC showed normal white blood count, hemoglobin. Chemistry sodium 132, potassium 3.5, chloride 97. Normal anion gap. not concern for dka. Did receive a liter of fluid. I am concerned she is dehydrated which could be contributed to her symptoms with the elevated blood sugar. Blood sugar through the lab work 302. After liter fluid, blood sugar 248. Patient remained asymptomatic with no complaints. Vital signs stable. She has no specific pain at this time. She denies chest pain, short of breath, cough, headache or dizziness. Recommend no sexial intercourse until results from lab work and urinalysis. If positive make sure all partners are treated. She was not treated empirically. She is just concerned with a previous sexual partner. continue monitoring blood sugar. Discussed diet changes. Recommend follow-up your PCP in 2 to 3 days for reevaluation and discuss other ways to help control your blood sugar.. Impression Primary Impression: Hyperglycemia Additional Impression: Dehydration Disposition: 01 HOME, SELF-CARE Condition: Stable Departure-Patient Inst. Decision time for Depature: 18:11 Referrals: [facility] (PCP/Family) Primary Care Physician Patient Instructions: Dehydration, Adult ED Add. Discharge Instructions: Continue to monitor your blood sugar. Follow-up with your primary care physician in 2 to 3 days for reevaluation. If any worsening symptoms return back to ED. All discharge instructions reviewed with patient and/or family. Voiced understanding. EHSAN JIMENEZ Mar 25, 2023 16:37
[2023-03-25 16:56] LABS: BASOPHILS # (AUTO) 0.1 10^3/uL (0.0-0.1); BASOPHILS % (AUTO) 1 % (0-10); EOSINOPHILS # (AUTO) 0.1 10^3/uL (0.0-0.3); EOSINOPHILS % (AUTO) 1 % (0-10); HEMATOCRIT 41 % (35-52); HEMOGLOBIN 13.7 g/dL (11.5-16.0); LYMPHOCYTES # (AUTO) 1.8 10^3/uL (1.0-4.0); LYMPHOCYTES % (AUTO) 28 % (12-44); MEAN CORPUSCULAR HEMOGLOBIN 29 pg (25-34); MEAN CORPUSCULAR HGB CONC 33 g/dL (32-36); MEAN CORPUSCULAR VOLUME 86 fL (80-99); MEAN PLATELET VOLUME 10.7 fL (9.0-12.2); MONOCYTES # (AUTO) 0.5 10^3/uL (0.0-1.0); MONOCYTES % (AUTO) 7 % (0-12); NEUTROPHILS # (AUTO) 3.9 10^3/uL (1.8-7.8); NEUTROPHILS % (AUTO) 61 % (42-75); PLATELET COUNT 273 10^3/uL (130-400); WHITE BLOOD COUNT 6.4 10^3/uL (4.3-11.0)
[2023-03-25 17:12] LABS: CLARITY,URINE CLEAR; COLOR,URINE YELLOW; GLUCOSE, URINE (UA) 3+ (NEGATIVE); PROTEIN,URINE NEGATIVE (NEGATIVE)
[2023-03-25 17:13] LABS: BILIRUBIN,URINE NEGATIVE (NEGATIVE); KETONES,URINE 2+ (NEGATIVE); NITRITE,URINE NEGATIVE (NEGATIVE)
[2023-03-25 17:14] LABS: BACTERIA,URINE NEGATIVE /HPF; LEUKOCYTE ESTERASE ,URINE NEGATIVE (NEGATIVE)
[2023-03-25 17:15] LABS: SQUAMOUS EPITHELIAL CELL,UR RARE /HPF
[2023-03-25 17:21] LABS: ALBUMIN 4.5 GM/DL (3.2-4.5); POTASSIUM 3.5 MMOL/L (3.6-5.0)
[2023-03-25 17:23] LABS: TOTAL PROTEIN 7.7 GM/DL (6.4-8.2)
[2023-03-25 17:25] LABS: BILIRUBIN,TOTAL 0.6 MG/DL (0.1-1.0)
[2023-03-25 17:27] LABS: CREATININE SERUM 0.77 MG/DL (0.60-1.30)
[2023-03-25 18:34] VITALS: BP 102/74
== END 2023-03-25 18:37 | disposition home or self-care (01) ==
LOC: EDUNIT# 16:02 → ER 16:04
DX: E11.65 Type 2 diabetes mellitus with hyperglycemia (principal); E86.0 Dehydration; R82.4 Acetonuria; Z79.84 Long term (current) use of oral hypoglycemic drugs; Z91.040 Latex allergy status
CPT/HCPCS: 36415; 80053; 81000; 82010; 82947; 83735; 84703; 85025; 86780; 87491; 87591